=== PATIENT | male | born 1975 | race Caucasian/White ===

== ENCOUNTER 2019-06-12 17:19 | Emergency (ER) | payer OTHER ==
[~2019-06-12 17:19] MED LIST: LORazepam 2 MG/ML VIAL ONE; WATER FOR INJ,STERILE 10 ML ONE; ZIPRASIDONE MESYLA 20 MG/VIAL IM ONE
[2019-06-12 17:44] LABS: Absolute Lymphocytes (CBC) 2.9 K/uL (0.7-4.9); Basophils % 0.5 % (0-1.3); Hematocrit 39.3 % (39.6-49.0); Lymphocytes % 46.7 % (15.3-44.8); MPV 7.7 fL (7.6-11.3); RBC Red Blood Cell Count 4.77 M/uL (4.33-5.43)
[2019-06-12 17:52] LABS: Protime INR 0.97
[2019-06-12 18:07] LABS: ALT/SGPT 41 U/L (12-78); AST/SGOT 32 U/L (15-37); Albumin 4.3 g/dL (3.4-5.0); Alkaline Phosphatase 88 U/L (45-117); BUN Blood Urea Nitrogen 11 mg/dL (7-18); Bicarbonate 17 mmol/L (21-32); Bilirubin Direct < 0.1 mg/dL (0-0.2); Bilirubin Total 0.3 mg/dL (0.2-1.0); Glucose Level 95 mg/dL (74-106); Potassium 3.1 mmol/L (3.5-5.1); Protein, Total 8.6 g/dL (6.4-8.2); Sodium Level 139 mmol/L (136-145)
[2019-06-12] MEDS ORDERED: NA CHLORIDE 0.9% 1,000 ML ONE ×2 (18:27→20:03)
[2019-06-12] MEDS ORDERED: KCL 20 MEQ/100 mL IVPB 20 MEQ/100 ML BAG IV ONE (18:46)
[2019-06-12 18:50] LABS: Barbiturates NEGATIVE (NEGATIVE); Benzodiazepines POSITIVE (NEGATIVE); Cocaine NEGATIVE (NEGATIVE); METHAMPHETAM NEGATIVE (NEGATIVE); Methadone NEGATIVE (NEGATIVE); Opiates NEGATIVE (NEGATIVE); Phencyclidine NEGATIVE (NEGATIVE); THC Cannibis NEGATIVE (NEGATIVE)
[2019-06-12] MEDS ORDERED: FOLIC ACID 1 MG, MULTIVITAMINS INJ 10 ML, THIAMINE HCL 100 MG in NA CHLORIDE 0.9% 1,000 ML IV ONE (19:00)
[2019-06-12 20:48] LABS: Urine Blood NEGATIVE (NEG); Urine Glucose NEGATIVE (NEG); Urine Protein NEGATIVE (NEG); Urine pH 5.5 (5.0-7.0)
--- NOTE | 2019-06-12 21:47 | EDPHYS ---
Physician Documentation [facility] Name: Bharathi Naik Age: 44 yrs Sex: Male : 1975 Arrival Date: 06/12/2019 Time: 17:21 Bed 2 Private MD: Daniel Douglas HPI: 06/11 17:41 This 44 yrs old Male presents to ER via EMS with complaints of Seizure. case 17:41 The patient presents after having a single isolated seizure, that lasted 2 minute(s). case Character of seizure(s): Loss of consciousness: the patient experienced loss of consciousness, Motor activity: generalized, Incontinence: none, Apnea: the patient did not experience apnea, Circulation: the patient did not experience evidence of pulse disturbance. Seizure onset: just prior to arrival. Context: the seizure(s) was witnessed, neighbor. Seizure Hx: it is unknown whether or not the patient has a previous seizure history, seizures due to Xanax withdrawal , heavy etoh today. Associated injury: The patient did not suffer any apparent associated injury. EMS care: none, IV fluids. The patient has experienced similar episodes in the past, a few times. Historical: - Allergies: 17:43 No Known Allergies; hb - Home Meds: 17:43 Neurontin Oral [Active]; Xanax Oral [Active]; Zoloft Oral [Active]; hb - PMHx: 17:43 Seizures; hb - Immunization history:: Adult Immunizations up to date. - Social history:: Smoking status: unknown. - Family history:: not pertinent. ROS: 17:41 Eyes: Negative for injury, pain, redness, and discharge, ENT: Negative for injury, case pain, and discharge, Neck: Negative for injury, pain, and swelling, Respiratory: Negative for shortness of breath, cough, wheezing, and pleuritic chest pain, Abdomen/GI: Negative for abdominal pain, nausea, vomiting, diarrhea, and constipation, Back: Negative for injury and pain, : Negative for injury, bleeding, discharge, and swelling, MS/Extremity: Negative for injury and deformity, Skin: Negative for injury, rash, and discoloration, Psych: Negative for depression, anxiety, suicide ideation, homicidal ideation, and hallucinations, Allergy/Immunology: Negative for hives, rash, and allergies, Endocrine: Negative for neck swelling, polydipsia, polyuria, polyphagia, and marked weight changes. 17:41 Constitutional: Negative for 17:41 Cardiovascular: Positive for palpitations. 17:41 Neuro: Positive for altered mental status. 17:41 Psych: Positive for drug dependence. Exam: 17:41 Constitutional: This is a well developed, well nourished patient who is awake, alert, case and in no acute distress. Head/Face: Normocephalic, atraumatic. Eyes: Pupils equal round and reactive to light, extra-ocular motions intact. Lids and lashes normal. Conjunctiva and sclera are non-icteric and not injected. Cornea within normal limits. Periorbital areas with no swelling, redness, or edema. ENT: Nares patent. No nasal discharge, no septal abnormalities noted. Tympanic membranes are normal and external auditory canals are clear. Oropharynx with no redness, swelling, or masses, exudates, or evidence of obstruction, uvula midline. Mucous membranes moist. Neck: Trachea midline, no thyromegaly or masses palpated, and no cervical lymphadenopathy. Supple, full range of motion without nuchal rigidity, or vertebral point tenderness. No Meningismus. Chest/axilla: Normal chest wall appearance and motion. Nontender with no deformity. No lesions are appreciated. Respiratory: Lungs have equal breath sounds bilaterally, clear to auscultation and percussion. No rales, rhonchi or wheezes noted. No increased work of breathing, no retractions or nasal flaring. Abdomen/GI: Soft, non-tender, with normal bowel sounds. No distension or tympany. No guarding or rebound. No evidence of tenderness throughout. Male : Normal genitalia with no discharge or lesions. Skin: Warm, dry with normal turgor. Normal color with no rashes, no lesions, and no evidence of cellulitis. MS/ Extremity: Pulses equal, no cyanosis. Neurovascular intact. Full, normal range of motion. 17:41 Cardiovascular: Rate: tachycardic, Rhythm: regular, Pulses: Pulses are 4+ in bilateral radial, brachial, femoral, popliteal, posterior tibial and and dorsalis pedis arteries.. Heart sounds: normal, Edema: is not appreciated, JVD: is not appreciated. 17:41 Neuro: Orientation: to person, place, Not oriented to time, situation, Mentation: able to follow commands, slow to respond, Memory: unable to test, Cranial nerves: is grossly normal based on the patient's age, no acute changes, Cerebellar function: unable to test, Motor: moves all fours, strength is normal, strength is 5/5 in all extremities, Sensation: no obvious gross deficits, appropriate Gait: not tested. Deep tendon reflexes are 2+ (normal) in the bilateral brachioradialis, bicep, tricep and patellar and Achilles tendons, Babinski testing is normal, seizure activity, is not displayed by the patient. 18:49 ECG was reviewed by the Attending Physician. [facility] 18:50 Neck: ROM/movement: is normal, no acute changes, Meningeal signs: are not present, case Kernig's sign is negative, Brudzinski's sign is negative. Vital Signs: 17:22 BP 125 / 87; Pulse 119; Resp 20; Temp 97.8; Pulse Ox 100% on R/A; Weight 120 kg; Height hb 6 ft. (182.88 cm); 18:15 BP 131 / 76; Pulse 124; Resp 15; Pulse Ox 97% on 100% Non-rebreather mask; hb 18:30 Pulse 122; Resp 14; Pulse Ox 97% on 100% Non-rebreather mask; hb 18:45 BP 121 / 62; Pulse 120; Resp 14; Pulse Ox 97% on 100% Non-rebreather mask; hb 19:00 BP 115 / 62; Pulse 118; Resp 17; Temp 97.3; Pulse Ox 100% on 15% Non-rebreather mask; rr5 20:00 BP 114 / 71; Pulse 110; Resp 15; Pulse Ox 99% on 15% Non-rebreather mask; rr5 21:00 BP 122 / 105; Pulse 88; Resp 16; Pulse Ox 100% on 10% Non-rebreather mask; rr5 22:00 BP 136 / 95; Pulse 108; Resp 19; Pulse Ox 98% ; rr5 23:00 BP 125 / 70; Pulse 99; Resp 18; Temp 97.8; Pulse Ox 100% on 10% Non-rebreather mask; rr5 0415 01:00 BP 98 / 63; Pulse 79; Resp 16; Pulse Ox 100% on 10% Non-rebreather mask; rr5 02:12 BP 101 / 67; Pulse 83; Resp 18; Pulse Ox 100% on R/A; ea 03:30 BP 98 / 79; Pulse 90; Resp 18; Pulse Ox 99% ; ea 05:20 BP 108 / 85; Pulse 87; Resp 16; Pulse Ox 100% ; rr5 06:05 BP 110 / 80; Pulse 89; Resp 17; Temp 98.6; Pulse Ox 98% on R/A; rr5 14 17:22 Body Mass Index 35.88 (120.00 kg, 182.88 cm) hb Brad Coma Score: 06/11 21:30 Eye Response: spontaneous(4). Verbal Response: oriented(5). Motor Response: obeys rr5 commands(6). Total: 15. MDM: 17:30 Patient medically screened. snw 17:48 Data reviewed: vital signs, nurses notes, lab test result(s), EKG, radiologic studies, case plain films. 17:49 ED course: pt arrived by [facility], combative, post ictal, xanax hx and heavy etoh case all day per ems. 06/11 17:27 Order name: Acetaminophen; Complete Time: 18:33 hb 06/11 17:27 Order name: Basic Metabolic Panel; Complete Time: 18:33 hb 06/11 17:27 Order name: CBC with Diff; Complete Time: 17:49 hb 06/11 17:27 Order name: ETOH Level; Complete Time: 18:33 hb 06/11 17:27 Order name: Hepatic Function; Complete Time: 18:33 hb 06/11 17:27 Order name: PT-INR; Complete Time: 18:33 hb 06/11 17:27 Order name: Ptt, Activated; Complete Time: 18:33 hb 06/11 17:27 Order name: Salicylate; Complete Time: 18:33 hb 06/11 17:27 Order name: Urine Drug Screen; Complete Time: 19:12 hb 06/11 18:13 Order name: Urine Dipstick--Ancillary (enter results); Complete Time: 20:53 bd 06/11 17:27 Order name: EKG; Complete Time: 17:28 hb 06/11 17:27 Order name: EKG - Nurse/Tech; Complete Time: 18:39 hb 06/11 17:27 Order name: IV Saline Lock; Complete Time: 17:47 hb 06/11 17:27 Order name: Labs collected and sent; Complete Time: 17:47 hb 06/11 17:27 Order name: Urine Dipstick-Ancillary (obtain specimen); Complete Time: 18:21 hb 06/11 17:48 Order name: Restraint:Violent/Self Destructive (Adult:18yo or >); Complete Time: 18:10 case 06/11 18:35 Order name: PO challenge: juice x 2 when awake; Complete Time: 18:38 case EC:49 Rate is 122 beats/min. Rhythm is regular. QRS [place] is Normal. TN interval is normal. case QRS interval is normal. QT interval is normal. No Q waves. T waves are Inverted. No ST changes noted. Clinical impression: Sinus tachycardia and No evidence of ischemia. Administered Medications: 17:15 Drug: Ativan 2 mg Route: IM; Site: left vastus lateralis; hb 18:00 Follow up: Response: No adverse reaction hb 17:21 Drug: Geodon 20 mg Route: IM; Site: right vastus lateralis; hb 17:45 Follow up: Response: No adverse reaction [facility] 18:18 Drug: Banana Bag - (NS 0.9% 1000 ml, foLIC Acid 1 mg, Thiamine 100 mg, Multivitamin 1 hb amp) Route: IV; Rate: 125 ml/hr; Site: left antecubital; 06/12 02:00 Follow up: Response: No adverse reaction; IV Status: Completed infusion; IV Intake: rr5 1000ml 06/11 18:29 Drug: NS 0.9% 1000 ml Route: IV; Rate: 1 bolus; Site: left antecubital; hb 20:00 Follow up: Response: No adverse reaction; IV Status: Completed infusion; IV Intake: rr5 1000ml 18:30 Drug: Thiamine 100 mg Route: IV; Rate: bolus; Site: left antecubital; hb 19:00 Follow up: IV Status: Completed infusion ea 18:48 Drug: Potassium Chloride 20 mEq Route: IV; Rate: per protocol; Site: left antecubital; hb 20:30 Follow up: Response: No adverse reaction; IV Status: Completed infusion; IV Intake: rr5 100ml 20:03 Drug: NS 0.9% 1000 ml Route: IV; Rate: 1 bolus; Site: left antecubital; rr5 06/12 07:10 Follow up: Response: No adverse reaction; IV Status: Completed infusion; IV Intake: ea 1000ml 06:37 Not Given (Other Intervention Used): Ativan 2 mg IVP once; if needed rr5 Disposition: 06/12/19 21:46 Discharged to Home. Impression: Underdosing of benzodiazepines - withdrawal, seizure, Hypokalemia, Epileptic seizures related to external causes - xanax withdrawal, Alcohol abuse with intoxication. - Condition is Fair. - Discharge Instructions: Alcohol Intoxication, Potassium Content of Foods, Nonepileptic Seizures, Alcohol Intoxication, [id number], Alcohol Abuse and Nutrition, Hypokalemia, Benzodiazepine Withdrawal. - Prescriptions for Klonopin 1 mg Oral tablet - take 1 tablet by ORAL route 2 times per day; 20 tablet. Potassium Chloride 20 meq Oral Packet - take 1 packet by ORAL route once daily 1 packet in 6 (six) ounces of water or juice; Take after meal; 14 packet. - Medication Reconciliation Form, Thank You Letter, Antibiotic Education, Prescription Opioid Use form. - Follow up: Private Physician; When: 2 - 3 days; Reason: Recheck today's complaints, Continuance of care, Re-evaluation by your physician. Follow up: Yon Keith; When: 2 - 3 days; Reason: Recheck today's complaints, Re-evaluation by your physician. - Problem is new. - Symptoms have improved. Signatures: Dispatcher [employer] Kadi Nicholson RN Daniel Espinoza MD MD cha Therrien, Shelly, WRESTLING COACH-C WRESTLING COACH-Csnw Leana Gao RN RN hb Roque, Raymond, RN RN rr5 Cameron Vaughan RN [id number] Marcella Heard RN, ea Corrections: (The following items were deleted from the chart) 07:33 06/11 21:46 06/12/2019 21:46 Discharged to Home. Impression: Underdosing of sv benzodiazepines - withdrawal, seizure; Hypokalemia; Epileptic seizures related to external causes - xanax withdrawal; Alcohol abuse with intoxication. Condition is Fair. Discharge Instructions: Alcohol Intoxication, Potassium Content of Foods, Nonepileptic Seizures, Alcohol Intoxication, [id number], Alcohol Abuse and Nutrition, Hypokalemia, Benzodiazepine Withdrawal. Prescriptions for Klonopin 1 mg Oral tablet - take 1 tablet by ORAL route 2 times per day; 20 tablet, Potassium Chloride 20 meq Oral Packet - take 1 packet by ORAL route once daily 1 packet in 6 (six) ounces of water or juice; Take after meal; 14 packet. and Forms are Medication Reconciliation Form, Thank You Letter, Antibiotic Education, Prescription Opioid Use. Follow up: Private Physician; When: 2 - 3 days; Reason: Recheck today's complaints, Continuance of care, Re-evaluation by your physician. Follow up: Yon Keith; When: 2 - 3 days; Reason: Recheck today's complaints, Re-evaluation by your physician. Problem is new. Symptoms have improved. snw
--- NOTE | 2019-06-12 21:47 | ER ---
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 On scene pt was on hb ground, had another seizure for 30-60 seconds, was post ictal and became violent during transfer to [facility]. EMS reports 6 seizures during transport to ED. Upon arrival pt severely agitated and violent, requiring restraint by multiple police officers. 18g LAC. Coronavirus screen: unable to complete. Ebola Screen: Unable to complete the Ebola screening because:. Initial Sepsis Screen: Does the patient meet any 2 criteria? No. Patient's initial sepsis screen is negative. Does the patient have a suspected source of infection? No. Patient's initial sepsis screen is negative. Risk Assessment: Do you want to hurt yourself or someone else? Other: aggressive, restrained by police officers. Onset of symptoms was June 12, 2019. 17:22 Method Of Arrival: EMS: [facility] Historical: - Allergies: 17:43 No Known Allergies; hb - Home Meds: 17:43 Neurontin Oral [Active]; Xanax Oral [Active]; Zoloft Oral [Active]; hb - PMHx: 17:43 Seizures; hb - Immunization history:: Adult Immunizations up to date. - Social history:: Smoking status: unknown. - Family history:: not pertinent. Screenin:44 Abuse screen: Denies threats or abuse. Denies injuries from another. Nutritional hb screening: No deficits noted. Tuberculosis screening: No symptoms or risk factors identified. Fall Risk Total Aleman Fall Scale indicates Low Risk Score (25-44 pts). Fall prevention measures have been instituted. Side Rails Up X 2 Frequent Obs/Assesments occuring As available Patient and Family Educated on Fall Prevention Program and strategies. Assessment: 17:12 Reassessment: Brian Edge called, multiple [place] police officers present, pt severely hb agitated and aggressive, attempting to punch and kick officers and staff. 17:23 Reassessment: Four PD officers at bedside to assist [place] [employer], pt attempting to hb spit, bite, punch, and kick staff and PD. 17:24 Reassessment: Surgical mask placed on pt. hb 17:28 General: Appears distressed, Behavior is agitated, anxious, combative. Pain: Denies hb pain. Neuro: Level of Consciousness is awake, alert, Oriented to person. Cardiovascular: Capillary refill < 3 seconds. Respiratory: Airway is patent Respiratory effort is even, unlabored. GI: No signs and/or symptoms were reported involving the gastrointestinal system. : No signs and/or symptoms were reported regarding the genitourinary system. EENT: No signs and/or symptoms were reported regarding the EENT system. Derm: Skin is intact, Skin is diaphoretic, Skin is pink, Skin temperature is warm. Musculoskeletal: No signs and/or symptoms reported regarding the musculoskeletal system. 18:18 Reassessment: Pt appears calm, lying in bed with eyes closed, respirations even and hb unlabored, VSS, NAD. 19:00 General: Appears in no apparent distress. Behavior is drowsy, quiet. Pain: Unable to rr5 use pain scale. Patient appears quiet, drowsy. Neuro: Level of Consciousness is drowsy. Oriented to none. Cardiovascular: Capillary refill < 3 seconds Patient's skin is warm and dry. Respiratory: Airway is patent Respiratory effort is even, unlabored, Respiratory pattern is regular, symmetrical. GI: unable to assess. Derm: Skin is intact, is healthy with good turgor, Skin temperature is warm. Musculoskeletal: Capillary refill < 3 seconds. 20:00 Reassessment: Patient appears in no apparent distress at this time. vitally stable, rr5 patient lying on bed eyes closed breathing spontaneously with oxygen support on non re breather mask. 20:07 Reassessment: niyah cordoba ([employer] [facility]) number [phone], she said to call her if patient is rr5 for discharge to arrange transport. 21:30 Reassessment: Patient appears in no apparent distress at this time. Patient is alert, rr5 oriented x 3, equal unlabored respirations, skin warm/dry/pink. patient woke up get out on bed, unsteady gait noted, alert oriented, calm, not aggressive obeys command. voided on the urinal freely 1500 clear yellow urine noted. 22:00 Reassessment: Patient appears in no apparent distress at this time. Patient is alert, rr5 oriented x 3, equal unlabored respirations, skin warm/dry/pink. snacks and juice given with good appetite. 22:13 Reassessment: Niyah Cordoba called to check in on fiance, reports she is unable to find a ea ride. 22:54 Reassessment: Patient and/or family updated on plan of care and expected duration. Pain ea level reassessed. Pt resting with eyes closed, respirations even and unlabored. Chest expansions even and symmetrical. 23:50 Reassessment: Patient appears in no apparent distress at this time. eyes closed rr5 breathing spontaneously with oxygen at 10 liter via NRM. 06/12 01:10 Reassessment: Patient appears in no apparent distress at this time. No changes from rr5 previously documented assessment. 02:58 Reassessment: Patient and/or family updated on plan of care and expected duration. Pain ea level reassessed. Pt resting with eyes closed, respirations even and unlabored. Chest expansions even and unlabored. 03:59 Reassessment: Patient and/or family updated on plan of care and expected duration. Pain ea level reassessed. Patient is alert, oriented x 3, equal unlabored respirations, skin warm/dry/pink. Pt resting with eyes closed, respirations even and unlabored. Pt awaiting on ride. Nicole reports she is unable to find a ride until in the AM. 05:54 Reassessment: Patient appears in no apparent distress at this time. No changes from rr5 previously documented assessment. resting on side lying position, no complaints made. 06:11 Reassessment: Patient and/or family updated on plan of care and expected duration. Pain ea level reassessed. Pt resting with eyes closed, respirations even and unlabored, chest expansions even and symmetrical. No s/s of pain or discomfort noted at this time. 06:35 Reassessment: Patient appears in no apparent distress at this time. patient fully rr5 awake, conscious and coherent, snacks and coffee given with good appetite. he is trying to arrange transport. 07:33 Reassessment: Taxi here to take pt home. sv Vital Signs: 06/11 17:22 BP 125 / 87; Pulse 119; Resp 20; Temp 97.8; Pulse Ox 100% on R/A; Weight 120 kg; Height hb 6 ft. (182.88 cm); 18:15 BP 131 / 76; Pulse 124; Resp 15; Pulse Ox 97% on 100% Non-rebreather mask; hb 18:30 Pulse 122; Resp 14; Pulse Ox 97% on 100% Non-rebreather mask; hb 18:45 BP 121 / 62; Pulse 120; Resp 14; Pulse Ox 97% on 100% Non-rebreather mask; hb 19:00 BP 115 / 62; Pulse 118; Resp 17; Temp 97.3; Pulse Ox 100% on 15% Non-rebreather mask; rr5 20:00 BP 114 / 71; Pulse 110; Resp 15; Pulse Ox 99% on 15% Non-rebreather mask; rr5 21:00 BP 122 / 105; Pulse 88; Resp 16; Pulse Ox 100% on 10% Non-rebreather mask; rr5 22:00 BP 136 / 95; Pulse 108; Resp 19; Pulse Ox 98% ; rr5 23:00 BP 125 / 70; Pulse 99; Resp 18; Temp 97.8; Pulse Ox 100% on 10% Non-rebreather mask; rr5 06/12 01:00 BP 98 / 63; Pulse 79; Resp 16; Pulse Ox 100% on 10% Non-rebreather mask; rr5 02:12 BP 101 / 67; Pulse 83; Resp 18; Pulse Ox 100% on R/A; ea 03:30 BP 98 / 79; Pulse 90; Resp 18; Pulse Ox 99% ; ea 05:20 BP 108 / 85; Pulse 87; Resp 16; Pulse Ox 100% ; rr5 06:05 BP 110 / 80; Pulse 89; Resp 17; Temp 98.6; Pulse Ox 98% on R/A; rr5 06/11 17:22 Body Mass Index 35.88 (120.00 kg, 182.88 cm) hb Brad Coma Score: 06/11 21:30 Eye Response: spontaneous(4). Verbal Response: oriented(5). Motor Response: obeys rr5 commands(6). Total: 15. ED Course: 17:21 Patient arrived in ED. mr 17:30 Daniel More MD is Attending Physician. snw 17:41 Triage completed. hb 17:43 Arm band placed on. hb 17:44 Patient has correct armband on for positive identification. Bed in low position. Call hb light in reach. Side rails up X2. Seizure precautions initiated. 17:44 Maintain EMS IV. Dressing intact. Good blood return noted. Site clean \T\ dry. Gauge \T\ hb site: 18g LAC. 18:15 Police notified at 17:25. bd 18:21 Cameron Vaughan RN is Primary Nurse. jl7 19:57 Ebony Naidu FNP-C is PHCP. snw 20:11 No provider procedures requiring assistance completed. rr5 21:46 Yon Keith MD is Referral Physician. snw 06/12 07:10 IV discontinued, intact, bleeding controlled, No redness/swelling at site. Pressure ea dressing applied. Restraints: 06/11 17:45 Violent/Self Destructive Restraint: Order: obtained. Initiated June 12, 2019 at 17:30 hb Staff present during the Initiation of Restraint: Dr. More, Charge Nurse Leida PEREZ, [place] PD, [place] [employer], [employer] grain picker. Observed actions/behavior: violent, severely aggressive, confusion/disorientation, difficulty remembering or follow instructions, impaired decision making, repeated attempts to get up from bed/chair without assistance. unable to follow instructions, verbally abusive, Less restrictive alternatives attempted: decreased environmental stimuli, placed near Nurse station, reoriented to location, verbal de-escalation performed, Alternative interventions: Ineffective. Clinical justification for use: Violent/self destructing behavior impacts therapeutic environment. Poses a serious danger to physical safety of self \T\ others. Monitoring: Mental status: agitated/restless, confused. verbally abusive, Cognition: poor judgement, poor safety awareness, Impulsive, poor attention/concentration, unable to follow commands, Circulation: Within defined parameters (based on Cardiovascular assessment). Skin integrity: Within defined parameters (based on Integumentary assessment) No injuries due to Restraints noted. 17:45 Violent/Self Destructive Restraint: Restraint status: Side rails up x 4 Started. Soft hb wrist restraint (Right) Started. Soft wrist restraint (Left) Started. Soft ankle restraint (Right) Started. Soft ankle restraint (Left) Started. 18:00 Violent/Self Destructive Restraint: Restraint status: Side rails up x 4 Continued. Soft hb wrist restraint (Right) Continued. Soft wrist restraint (Left) Continued. Soft ankle restraint (Right) Continued. Soft ankle restraint (Left) Continued. 18:15 Violent/Self Destructive Restraint: Restraint status: Side rails up x 4 Continued. Soft hb wrist restraint (Right) Continued. Soft wrist restraint (Left) Continued. Soft ankle restraint (Right) Continued. Soft ankle restraint (Left) Continued. 18:30 Violent/Self Destructive Restraint: Monitoring: Mental status: patient asleep, hb Circulation: Within defined parameters (based on Cardiovascular assessment). Skin integrity: Within defined parameters (based on Integumentary assessment) No injuries due to Restraints noted. 18:45 Violent/Self Destructive Restraint: Monitoring: Mental status: patient asleep, hb Circulation: Within defined parameters (based on Cardiovascular assessment). Skin integrity: Within defined parameters (based on Integumentary assessment) No injuries due to Restraints noted. 19:00 Violent/Self Destructive Restraint: Face to Face Evaluatn: Response of Patient to rr5 Restraint: received resting eyes closed, breathing spontaneously,not in distress, not aggressive Terminate restraint. Restraint discontinuation: Discontinued at June 12, 2019 at 19:00 Effective alternative interventions: decrease environmental stimuli, medications evaluated, repositioned, covered lines/tubes. Administered Medications: 17:15 Drug: Ativan 2 mg Route: IM; Site: left vastus lateralis; hb 18:00 Follow up: Response: No adverse reaction hb 17:21 Drug: Geodon 20 mg Route: IM; Site: right vastus lateralis; hb 17:45 Follow up: Response: No adverse reaction [facility] 18:18 Drug: Banana Bag - (NS 0.9% 1000 ml, foLIC Acid 1 mg, Thiamine 100 mg, Multivitamin 1 hb amp) Route: IV; Rate: 125 ml/hr; Site: left antecubital; 06/12 02:00 Follow up: Response: No adverse reaction; IV Status: Completed infusion; IV Intake: rr5 1000ml 06/11 18:29 Drug: NS 0.9% 1000 ml Route: IV; Rate: 1 bolus; Site: left antecubital; hb 20:00 Follow up: Response: No adverse reaction; IV Status: Completed infusion; IV Intake: rr5 1000ml 18:30 Drug: Thiamine 100 mg Route: IV; Rate: bolus; Site: left antecubital; hb 19:00 Follow up: IV Status: Completed infusion ea 18:48 Drug: Potassium Chloride 20 mEq Route: IV; Rate: per protocol; Site: left antecubital; hb 20:30 Follow up: Response: No adverse reaction; IV Status: Completed infusion; IV Intake: rr5 100ml 20:03 Drug: NS 0.9% 1000 ml Route: IV; Rate: 1 bolus; Site: left antecubital; rr5 06/12 07:10 Follow up: Response: No adverse reaction; IV Status: Completed infusion; IV Intake: ea 1000ml 06:37 Not Given (Other Intervention Used): Ativan 2 mg IVP once; if needed rr5 Intake: 06/11 20:00 IV: 1000ml; Total: 1000ml. rr5 20:30 IV: 100ml; Total: 1100ml. rr5 22:00 PO: 550ml (Juice); Total: 1650ml. rr5 06/12 02:00 IV: 1000ml; Total: 2650ml. rr5 06:36 PO: 500ml (Water); Total: 3150ml. rr5 07:10 IV: 1000ml; Total: 4150ml. ea 06:36 and coffee rr5 Output: 06/11 21:30 Urine: 1500ml (Voided); Total: 1500ml. rr5 06/12 06:36 and coffee rr5 Outcome: 06/11 21:46 Discharge ordered by . jeri 06/12 07:09 Condition: stable ea Discharge instructions given to patient, Instructed on discharge instructions, follow up and referral plans. medication usage, Demonstrated understanding of instructions, follow-up care, medications, Prescriptions given X 2. 07:33 Patient left the ED. sv Signatures: Trish Haro Stephanie, RN Daniel Espinoza MD MD cha Therrien, Shelly, FIXED CAPITAL CLERK-C FIXED CAPITAL CLERK-Amy Ochoa Heather, RN RN hb Leal, Jahala, RN RN jl7 Marcella Heard RN RN ea Roque, Raymond RN RN rr5 Corrections: (The following items were deleted from the chart) 06/11 18:16 18:14 Police bd bd 18:18 17:52 Reassessment: Pt appears calm, lying in bed with eyes closed, respirations even hb and unlabored, VSS, NAD. hb 18:55 18:00 Response: No adverse reaction hb jl7
[2019-06-13 08:00] VITALS: BP 110/80; TEMP 98.6; O2SAT 98
--- NOTE | 2019-06-13 12:51 | EKG ---
Test Date: 2019-06-12 Test Time: 18:42:57 Industrial Conveyor Belt Repairer: FRANCIS MEASUREMENT RESULTS: Intervals: Rate: 122 VA: 148 QRSD: 92 QT: 324 QTc: 461 [place]: P: 71 VA: 148 QRS: 77 T: 10 INTERPRETIVE STATEMENTS: Sinus tachycardia T wave abnormality, consider inferior ischemia Abnormal ECG No previous ECG available for comparison Electronically Signed On 06-13-19 12:49:49 CDT by Jose Peter
== END 2019-06-13 07:33 | disposition home or self-care (01) ==
LOC: ER 17:19
DX: F19.939 Other psychoactive substance use, unspecified with withdrawal, unspecified (principal); T42.4X6A Underdosing of benzodiazepines, initial encounter; F10.129 Alcohol abuse with intoxication, unspecified
CPT/HCPCS: 85025; 80048; 36415; 80320; 80329 ×2; 85610; 80076; 80307 ×8; 85730; 81003; J3411; J7030 ×3; 93005; J3486

== ENCOUNTER 2019-09-17 04:29 | Emergency (ER) | payer OTHER ==
--- NOTE | 2019-09-17 05:54 | ER ---
Nurse's Notes [facility] Name: Bharathi Naik Age: 44 yrs Sex: Male : 1975 Arrival Date: 09/17/2019 Time: 04:34 Bed 2 Private MD: Diagnosis: Presentation: 09/16 04:34 Chief complaint: Patient states: DENIES HURTING HIMSELF OR THE OTHERS. EMS states: WAS rv IN A HOUSE CONSTITUTION PARTY, DRINKING ALL DAY. PASSED OUT IN THE PORCH AND DID NOT WANT TO LEAVE THE HOUSE. TOUR PRODUCTION SUPERVISOR CAME IN AND STARTED TO HAVE POSSIBLE SEIZURE. THEN TRIED TO JUMP OFF THE PORCH. HURT HIS LEFT FOOT AND KNEE, AND RIGHT THIGH ON THE PROCESS. ALERT AND ORIENTED UPON ARRIVAL. DENIES ANY CHEST PAIN, HEADACHE OR DIZZINESS. Coronavirus screen: Proceed with normal triage. Ebola Screen: No symptoms or risks identified at this time. Initial Sepsis Screen: Does the patient meet any 2 criteria? No. Patient's initial sepsis screen is negative. Does the patient have a suspected source of infection? No. Patient's initial sepsis screen is negative. Risk Assessment: Do you want to hurt yourself or someone else? Patient reports no desire to harm self or others. Onset of symptoms was September 17, 2019 at 04:00. 04:34 Method Of Arrival: EMS: [facility] rv 04:34 Acuity: GIRISH 3 rv 04:39 Chief complaint: VERBALIZED HURTING HIMSELF, BEING SUICIDAL, BECAUSE OF RECENT PASSING rv OF MULTIPLE FAMILY MEMBERS. 04:46 Chief complaint:. rv Triage Assessment: 04:40 General: Appears comfortable, Behavior is calm, cooperative. Pain: Complains of pain in rv right wrist, lateral aspect of right thigh, left knee and dorsum of left foot. EENT: No signs and/or symptoms were reported regarding the EENT system. Neuro: Level of Consciousness is awake, alert, obeys commands, Oriented to person, place, time, situation. Cardiovascular: Patient's skin is warm and dry. Rhythm is sinus tachycardia. Respiratory: Airway is patent Respiratory effort is even, unlabored. Derm: Skin is intact. Historical: - Allergies: 04:39 No Known Allergies; rv - PMHx: 04:39 Seizures; TRAUMATIC BRAIN INJURY; rv - PSHx: 04:39 BRAIN SHUNT; rv - Immunization history:: Adult Immunizations unknown. - Social history:: Smoking status: Patient reports the use of cigarette tobacco products, denies chronic smoking, but will smoke occasionally, Patient uses alcohol. Screenin:47 Abuse screen: Denies threats or abuse. Denies injuries from another. Nutritional rv screening: No deficits noted. Tuberculosis screening: No symptoms or risk factors identified. Fall Risk None identified. Assessment: 05:08 Reassessment: PATIENT REFUSED TO BE TREATED. WALKED OUT THE EXAMINATION ROOM BEFORE rv BEING SEEN BY A PROVIDER. 05:30 Reassessment: pt is alert and oriented x4 at this time, reports that he is upset that sg the police were not trained to handle seizure patients appropriately and that is the reason he became aggressive with the police. pt reports he would like to go to back to his home at this time. pt has refuse treatment at this time. 05:38 Reassessment: pt ambulatory to taxi with steady gait, pt denies any complaints, denies sg suicidal ideation, denies homicidal ideation at this time. pt left the ED to go home. Vital Signs: 04:34 BP 108 / 86; Pulse 116; Resp 14; Temp 98.6; Pulse Ox 97% on R/A; Weight 108.86 kg; rv Height 5 ft. 11 in. (180.34 cm); Pain 0/10; 04:34 Body Mass Index 33.47 (108.86 kg, 180.34 cm) rv ED Course: 04:34 Patient arrived in ED. rv 04:35 Brett Oliver MD is Attending Physician. [facility] 04:38 Triage completed. rv 04:46 Arm band placed on Patient placed in the treatment room, on a stretcher, Patient rv notified of wait time. 04:47 Patient has correct armband on for positive identification. Placed in gown. Bed in low rv position. Call light in reach. Side rails up X2. Seizure precautions initiated. barrel bridge assembler on. Pulse ox on. NIBP on. 05:08 Declan Taylor RN is Primary Nurse. rv 05:09 No provider procedures requiring assistance completed. Patient did not have IV access rv during this emergency room visit. Administered Medications: No medications were administered Outcome: 05:09 Eloped from patient exam room, before seeing physician Time discovered patient gone: rv September 17, 2019 at 04:50 05:09 Condition: unchanged 05:53 Patient left the ED. rv Signatures: Rich Hollins RN RN sg Declan Taylor RN RN rv Brett Oliver MD MD [id number] Corrections: (The following items were deleted from the chart) 04:47 04:34 Chief complaint: Patient states: WAS IN A HOUSE CONSTITUTION PARTY, DRINKING ALL DAY. PASSED rv OUT IN THE PORCH AND DID NOT WANT TO LEAVE THE HOUSE. TOUR PRODUCTION SUPERVISOR CAME IN AND STARTED TO HAVE POSSIBLE SEIZURE. THEN TRIED TO JUMP OFF THE PORCH. HURT HIS LEFT FOOT AND KNEE, AND RIGHT THIGH ON THE PROCESS. ALERT AND ORIENTED UPON ARRIVAL. DENIES ANY CHEST PAIN, HEADACHE OR DIZZINESS. rv
[2019-09-17 06:03] VITALS: BP 108/86; TEMP 98.6; O2SAT 97
== END 2019-09-17 05:53 | disposition left against medical advice (07) ==
LOC: ER 04:29
DX: R45.851 Suicidal ideations (principal); Z53.21 Procedure and treatment not carried out due to patient leaving prior to being seen by health care provider
CPT/HCPCS: 99284

== ENCOUNTER 2021-10-02 17:35 | Emergency (ER) | payer MEDICARE ==
--- OUTSIDE RECORDS SUMMARY | 2021-10-02 17:39 | XMS REPORT | Continuity of Care Document ---
:1975 Author Organization [facility] t Address [address] [place] [address] [address]. [address] [place] [address] Care Team Providers Name Role Phone RICHIE GHOTRA Primary Care Physician Unavailable GAY_S Attending Clinician Unavailable Celso Reyna Attending Clinician CELSO HESS Attending Clinician Unavailable Doctor Unassigned, [place] Attending Clinician Unavailable ALICE DAY Attending Clinician Unavailable AZAEL GALEANO Attending Clinician Unavailable RU BELLO Attending Clinician Unavailable LUIS ALBERTO DARNELL Attending Clinician Unavailable UNKNOWN, ATTENDING Attending Clinician Unavailable AGUSTIN NELSON Attending Clinician Unavailable KESHA SMITH Attending Clinician Unavailable MELISSA Admitting Clinician Unavailable ALICE DAY Admitting Clinician Unavailable ALISHA WILLETT Admitting Clinician Unavailable KESHA SMITH Admitting Clinician Unavailable Payers Payer Name Policy Type Policy Number Effective Date Expiration Date S jose MEDICARE PART A \T\ [id number] 1998 B 00:00:00 [facility] [id number] 2021 (MEDICARE 00:00:00 REPLACEMENT HMO) Problems Condition Condition Condition Status Onset Resolution Last Treating Co mments Source Name Details Category Date Date Treatment Clinician Date Seizure Seizure Disease Active Univers 6- ity of 00:00: [address] Branch 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 2-25 ity of 00:00: [place] 00 Medical Branch Urinary Urinary Disease Active Univers incontinen incontinen 2-25 it y of ce ce 00:00: [place] 00 Medical Branch Allergies, Adverse Reactions, Alerts Allergy Allergy Status Severity Reaction(s) Onset Inactive Treating Comm ents Source Name Type Date Date Clinician Nsaids Propensi Active Other - See 2013-02 stomach [place] (Non-Live ty to comments 2-17 bleeding ity of roidal adverse 00:00: [place] Anti-Inf reaction 00 Medica l lammator s Branch y Drug) NSAIDS Drug Active Other-Cmnt 2013-02 Univer s (NON-LIVE Class 2-17 ity of ROIDAL 00:00: [place] 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 DRUG) Social History Social Habit Start Date Stop Date Quantity Comments Source History SDOH University o f Alcohol Frequency [place] M edical Branch History SDOH University o f Alcohol Std [place] Medical Drinks Branch History SDKS University o f Alcohol Binge [place] Medic al Branch Exposure to Yes University of SARS-CoV-2 [place] Medical (event) Branch Alcohol intake 2020-11-23 2020-11-23 Current drinker Unive rsity of 00:00:00 00:00:00 of alcohol [place] Medical (finding) Branch Alcohol Comment 2014-03-07 2014-03-07 occasional Universit y of 00:00:00 00:00:00 [facility] Tobacco use and 2014-02-13 2014-02-13 Never used Universit y of exposure 00:00:00 00:00:00 [facility] Sex Ass[birth year] At [birth year] Universit y of 00:00:00 00:00:00 [facility] Smoking Status Start Date Stop Date Source Former smoker 2014-02-13 00:00:00 2014-02-13 00:00:00 [facility] Medications Ordered Filled Start Stop Current Ordering Indication Dosage Frequency Signature Comments Components Source Medication Medication Date Date Medication? Clinician (SIG) Name Name yecenia Yes [id number] Apply to [facility] ne 9-26 area(s) 2 ity of acetonide 00:00: (two) [place] 0.1 % 00 times Medical ointment daily. Branch hydrOXYzine Yes [id number] 25mg Take 1 Univers 25 mg 9-26 tablet by ity of tablet 00:00: mouth [place] 00 every 8 Medical (eight) Branch hours as needed for Itching. doxycycline 0 202- No [id number] 100mg Take 1 Univers hyclate 100 9-26 10-07 tablet by it y of mg tablet 00:00: 04:59 mouth 2 [place] 00 :[place] (two) Medical times [place] daily for 10 days. dextroamphe Yes 20mg Take 20 mg Univers tamine-amph 6-15 by mouth 2 it y of etamine 23:25: (two) [place] (ADDERALL) 58 times Medical 20 mg daily. Branch tablet Butalbital- Yes 1{capsu Take 1 U nivers Acetaminoph 6-15 le} capsule by it y of en-Caff 23:25: mouth. [place] (FIORICET) 58 Medical 50-300-40 Branch mg per capsule lisinopriL 0 Yes 10mg Take 10 mg U nivers 10 mg 6-15 by mouth ity of tablet 23:25: daily. [place] [id number] Medical Branch dextroamphe 0 Yes 20mg Take 20 mg Univers tamine-amph 6-15 by mouth 2 it y of etamine 23:25: (two) [place] (ADDERALL) 58 times Medical 20 mg daily. Branch tablet Butalbital- 0 Yes 1{capsu Take 1 U nivers Acetaminoph 6-15 le} capsule by it y of en-Caff 23:25: mouth. [place] (FIORICET) 58 Medical 50-300-40 Branch mg per capsule lisinopriL Yes 10mg Take 10 mg U nivers 10 mg 6-15 by mouth ity of tablet 23:25: daily. [place] 58 Medical Branch acetaminoph 0 Yes [id number] 1{tbl} Take 1 [place] en-codeine 6-15 tablet by ity of 300-30 mg 00:00: mouth [place] tablet 00 every 4 Medical (four) Branch hours as needed for Pain (scale 4-6). Indication s: acute pain neomycin-po Yes [id number] 3[drp] Place 3 Univers lymyxin-hyd 6-15 Drops in ity of rocortisone 00:00: left ear 4 [place] otic 00 (four) Medical solution times Branch daily. acetaminoph Yes [id number] 1{tbl} Take 1 [place] en-codeine 6-15 tablet by ity of 300-30 mg 00:00: mouth [place] tablet 00 every 4 Medical (four) Branch hours as needed for Pain (scale 4-6). Indication s: acute pain neomycin-po Yes [id number] 3[drp] Place 3 Univers lymyxin-hyd 6-15 Drops in ity of rocortisone 00:00: left ear 4 [place] otic 00 (four) Medical solution times Branch daily. TESTOSTERON 2019-0 Yes [id number] APPLY 2 Univers E 20.25 8-23 PUMPS ( TO ity of mg/1.25 00:00: THE [place] gram (1.62 00 SHOULDERS Medi mar[place] %) gel pump AND UPPER Bra nch ARMS) EVERY MORNING. TESTOSTERON 0 Yes [id number] APPLY 2 Univers E 20.25 8-23 PUMPS ( TO ity of mg/1.25 00:00: THE [place] gram (1.62 00 SHOULDERS Medi marimar %) gel pump AND UPPER Bra nch ARMS) EVERY MORNING. SERTraline 2019-0 Yes [id number] 100mg Take 1 Univers 100 mg 6-12 tablet by ity of tablet 00:00: mouth [place] 00 daily. Medical Branch SERTraline 2019-0 Yes [id number] 100mg Take 1 Univers 100 mg 6-12 tablet by ity of tablet 00:00: mouth [place] 00 daily. Medical Branch traMADol 2019-0 Yes [id number] 50mg Take 1 Univers (ULTRAM) 50 6-05 [id number] tablet by i ty of mg tablet 00:00: mouth [place] 00 every 6 Medical (six) Branch hours as needed for Pain (scale 7-10). traMADol 2020-0 Yes [id number] 50mg Take 1 Univers (ULTRAM) 50 6-05 [id number] tablet by i ty of mg tablet 00:00: mouth [place] 00 every 6 Medical (six) Branch hours as needed for Pain (scale 7-10). icosapent 2020-0 Yes [id number] 2g Take 2 U nivers ethyl 2-25 capsules ity of (VASCEPA) 1 00:00: by mouth 2 [place] gram 00 (two) Medical capsule times Branch daily with meals. icosapent 2020-0 Yes [id number] 2g Take 2 U nivers ethyl 2-25 capsules ity of (VASCEPA) 1 00:00: by mouth 2 [place] gram 00 (two) Medical capsule times Branch daily with meals. Immunizations Ordered Filled Immunization Date Status Comments [facility] Immunization Name Name Pfizer COVID-19 Pfizer COVID-19 2020-06-28 Completed Vaccine Vaccine 00:00:00 SARS-COV-2 COVID-19 2020-06-28 Completed Unive rsity of PFIZER VACCINE 00:00:00 [facility] SARS-COV-2 COVID-19 2020-06-28 Completed Unive rsity of PFIZER VACCINE 00:00:00 [facility] Pfizer COVID-19 Pfizer COVID-19 2020-06-07 Completed Vaccine Vaccine 00:00:00 SARS-COV-2 COVID-19 2020-06-07 Completed Unive rsity of PFIZER VACCINE 00:00:00 [facility] SARS-COV-2 COVID-19 2020-06-07 Completed Unive rsity of PFIZER VACCINE 00:00:00 [facility] Vital Signs Vital Name Observation Time Observation Value Comments Source Systolic blood 2020-11-24 01:58:00 136 mm[Hg] Univer sity of pressure [facility] Diastolic blood 2020-11-24 01:58:00 91 mm[Hg] Unive rsity of pressure [facility] Heart rate 2020-11-24 01:57:00 93 /min Universi ty of [facility] Body temperature 2020-11-24 01:57:00 36.83 Phyllis [facility] Respiratory rate 2020-11-24 01:57:00 20 /min [facility] Body height 2020-11-24 01:57:00 180.3 cm [facility] Body weight 2020-11-24 01:57:00 96.616 kg [facility] BMI 2020-11-24 01:57:00 29.71 kg/m2 [facility] Oxygen saturation in 2020-11-24 01:57:00 98 /min [facility] Arterial blood by [facility] Pulse oximetry [place] Procedures Procedure Date / Time Performed Performing Clinician Sour e ASSIGNMENT OF BENEFITS 2020-11-24 01:52:32 Doctor Unassigned, No [facility] Encounters Start End Encounter Admission Attending Care Care Encounter Source Date/Time Date/Time Type Type Clinicians Facility Department ID 2020-12-29 Emergency [facility] [id number] [facility]-10[facility]01 2021-10-01 [id number] - Devoted 00:00:00 00:00:00 [id number] Medica l Group 2021-09-11 2021-09-11 Outpatient [facility] [id number] [facility] 08:04:00 08:04:00 [id number] Medica l Group 2021-03-11 2021-03-11 Outpatient [facility] [id number] [facility] 12:01:00 12:01:00 Medica l Group 2020-11-23 2020-11-23 [facility] [id number] Univers 20:52:53 21:12:53 Care [facility] [id number] it y of [place] [id number] Doug as Javad?Blea [phone] [address] Medical Office Building 2020-11-23 2020-11-23 Outpatient R [facility] [id number] Univers 20:40:00 20:40:00 [id number] y [facility] 2020-11-23 2020-11-23 Outpatient R JOSE GUADALUPE [facility] [id number] Univers 20:40:00 20:40:00 CELSO ity [facility] 2020-11-23 2020-11-23 Orders Doctor KRISS [id number] Univers 00:00:00 00:00:00 Only Unassigned, ALY [id number] ity of [place] [facility] [id number] Doug as [id number] [address] 2020-06-28 2020-06-28 Outpatient [facility] [id number] Univers 09:55:00 09:55:00 ity [facility] 2020-06-28 2020-06-28 Outpatient [facility] [id number] [facility] 00:00:00 00:00:00 V 2020-06-07 2020-06-07 Outpatient [facility] [id number] Univers 09:40:00 [facility] 2020-06-07 2020-06-07 Outpatient GCCOVIDV GCCOVIDV [id number] [facility] 00:00:00 00:00:00 V 2019-09-12 2019-09-12 Outpatient Chaips DAY [facility] [id number] Univers 13:15:00 13:15:00 ALICE [id number] [facility] 2019-09-12 2019-09-12 Outpatient Chapsi DAY [facility] [id number] Univers 13:15:00 13:15:00 ALICE [facility] 2019-08-15 2019-08-15 Outpatient Chapis DAY [facility] [id number] Univers 15:52:59 23:59:00 ALICE [facility] 2019-08-15 2019-08-15 Outpatient Chapis DAY [facility] [id number] Univers 15:30:00 15:30:00 ALICE [id number] [facility] 2019-08-08 2019-08-08 Outpatient Chapis DAY [facility] [id number] Univers 15:42:16 15:43:00 ALICE [facility] 2019-08-08 2019-08-08 Outpatient Chapis DAY [facility] [id number] Univers 14:15:00 14:15:00 ALICE [id number] ity of [facility] 2019-08-02 2019-08-03 Emergency X WALESKA [facility] ERT [id number] Univers 22:10:13 01:57:00 AZAEL ity of [facility] 2019-06-29 2019-06-29 Outpatient R [facility] [id number] Univers 15:00:00 15:00:00 ity of [facility] 2019-06-29 2019-06-29 Outpatient R [facility] [id number] Univers 10:10:00 10:10:00 ity of [facility] 2019-06-29 2019-06-29 Outpatient R [facility] [id number] Univers 10:10:00 10:10:00 ity of [facility] 2019-06-28 2019-06-28 Outpatient R [facility] [id number] Univers 11:00:00 11:00:00 [id number] ity of [facility] 2019-06-28 2019-06-28 Outpatient R [facility] [id number] Univers 11:00:00 11:00:00 ity of [facility] 2019-06-27 2019-06-27 Outpatient R [facility] [id number] Univers 08:50:00 08:50:00 [id number] ity of [facility] 2019-06-27 2019-06-27 [facility] [id number] Univers 08:50:00 08:50:00 RU ity of [facility] 2019-06-26 2019-06-26 Outpatient R [facility] [id number] Univers 08:40:00 08:40:00 [id number] ity of [facility] 2019-06-26 2019-06-26 Outpatient R MANN, [facility] [id number] Univers 08:40:00 08:40:00 LUIS ALBERTO ity of [facility] 2019-06-22 2019-06-22 Outpatient R [facility] [id number] Univers 14:10:00 14:10:00 [id number] ity of [facility] 2019-06-22 2019-06-22 Outpatient R UNKNOWN, [facility] [id number] Univers 14:10:00 14:10:00 ATTENDING lorenzo [facility] 2019-05-11 2019-05-11 Outpatient Chapis NELSON [facility] [id number] Univers 13:40:00 13:40:00 AGUSTIN richelle [facility] 2019-03-05 2019-03-05 Outpatient Chapis NELSON [facility] [id number] Univers 11:15:00 11:58:15 AGUSTIN [facility] 2019-02-27 2019-02-27 Emergency X MAGDARICAL, [facility] ERT [id number] Univers 12:12:18 15:10:00 KESHA ventura [facility] Results This patient has no known results.
[2021-10-02 18:12] LABS: Urine Blood Negative (Negative); Urine Glucose Negative (Negative); Urine Specific Gravity <=1.005 (1.005-1.030)
[2021-10-02 18:13] LABS: Urine Protein Negative (Negative)
[2021-10-02 18:28] LABS: Absolute Lymphocytes (CBC) 1.6 K/uL (0.7-4.9); Hematocrit 40.9 % (39.6-49.0); Lymphocytes % 38.6 % (15.3-44.8); MCV 83.8 fL (80-100); MPV 7.6 fL (7.6-11.3); RBC Red Blood Cell Count 4.88 M/uL (4.33-5.43)
[2021-10-02 18:33] LABS: Barbiturates POSITIVE (NEGATIVE); Benzodiazepines NEGATIVE (NEGATIVE); Cocaine NEGATIVE (NEGATIVE); METHAMPHETAM NEGATIVE (NEGATIVE); Methadone NEGATIVE (NEGATIVE); Opiates NEGATIVE (NEGATIVE); Phencyclidine NEGATIVE (NEGATIVE); THC Cannibis NEGATIVE (NEGATIVE)
--- NOTE | 2021-10-02 18:58 | RAD REPORT ---
EXAM DESCRIPTION: CT - Head C Spine Mpr Wo Con - 10/02/2021 6:46 pm CLINICAL HISTORY: Head and neck injury status post fall. Head and neck pain COMPARISON: None. TECHNIQUE: Computed axial tomography of the head and cervical spine was obtained. Sagittal and coronal reconstruction was performed. All CT scans are performed using dose optimization technique as appropriate and may include automated exposure control or mA/KV adjustment according to patient size. FINDINGS: An intracranial bleed is not seen. The ventricles are normal in caliber. An extra-axial fl uid collection is not noted.Fluid within the visualized sinuses and mastoids is not seen Several scalp lesions measuring up to 9 millimeters. These are nonspecific A cervical fracture is not visualized. No dislocation is noted. 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 Spondylosis C5-6 resulting in moderate to marked left and moderate rig ht foraminal stenosis IMPRESSION: No acute intracranial abnormality is seen. A cervical fracture is not visualized. If the patient continues to have symptoms to suggest intracra nial /spinal cord pathology then MRI would be recommended
--- NOTE | 2021-10-02 19:03 | RAD REPORT ---
EXAM DESCRIPTION: Alison Single View10/02/2021 6:58 pm CLINICAL HISTORY: Chest pain COMPARISON: none FINDINGS: The lungs appear clear of acute infiltrate. The heart is normal size IMPRESSION: No acute abnormalities displayed
[2021-10-02 19:20] LABS: BUN Blood Urea Nitrogen 13 mg/dL (7-18); Bicarbonate 26 mmol/L (21-32); Glomerular Filtration Rate 110 ml/min (=/>90); Glucose Level 109 mg/dL (74-106); Potassium 3.8 mmol/L (3.5-5.1); Sodium Level 138 mmol/L (136-145)
[2021-10-02 19:46] LABS: SARS-CoV-2 Antigen Rapid Res Negative (Negative)
[2021-10-02] MEDS ORDERED: DIPHENHYDRAMINE 50 MG/ML VIAL ONE (20:16)
[2021-10-02] MEDS ORDERED: LORazepam 2 MG/ML VIAL ONE (20:17)
[2021-10-02] MEDS ORDERED: HALOPERIDOL LACT 5 MG/ML INJ ONE (20:18)
[2021-10-02] MEDS ORDERED: ZIPRASIDONE MESYLA 20 MG/VIAL IM ONE (21:05)
[2021-10-02] MEDS ORDERED: WATER FOR INJ,STERILE 10 ML ONE (21:06)
--- NOTE | 2021-10-03 06:16 | ER ---
Nurse's Notes [facility] Name: Bharathi Devine Age: 46 yrs Sex: Male : 1975 Arrival Date: 10/02/2021 Time: 17:36 Bed 17 Private MD: Diagnosis: Major depressive disorder, recurrent, mild;Suicidal ideations-NO PLAN;Alcohol abuse with intoxication Presentation: 10/02 17:38 Chief complaint: pt arrives to ER with [facility], pt told his and iw psychiatrist that he wanted to kill himself, pt was slamming his head against the vehicle en route to ER, pt had near syncopal episode and was moved to ER bed 4. Coronavirus screen: At this time, the client does not indicate any symptoms associated with coronavirus-19. 17:38 Method Of Arrival: Law Enforcement: Indira HOLLIS iw 17:38 Acuity: GIRISH 2 iw 18:20 Ebola Screen: No symptoms or risks identified at this time. Initial Sepsis Screen: Does aa5 the patient meet any 2 criteria? HR > 90 bpm. Does the patient have a suspected source of infection? No. Patient's initial sepsis screen is negative. Risk Assessment: Do you want to hurt yourself or someone else? Patient reports desire/thoughts of hurting themselves or someone else. Provider notified. Onset of symptoms was October 02, 2021. Historical: - Allergies: 18:20 No Known Allergies; ha1 - Home Meds: 18:20 Zoloft Oral [Active]; Clonazepam Oral [Active]; Suboxone sublingual [Active]; Lunesta ha1 oral [Active]; Lisinopril Oral [Active]; Topamax Oral [Active]; abilify (prescribed 10/02/21 pt has not started taking meds) [Active]; 10/03 09:43 Vascepa oral [Active]; Lipitor Oral [Active]; John Gel [Active]; vg1 - PMHx: 10/02 18:20 Seizures; traumatic brain injury; Neuropathy; Pituitary Tumor; Depressive disorder; ha1 Anxiety; Hypertensive disorder; 10/03 12:18 Rectal prolapse; vg1 - PSHx: 10/02 18:20 Brain Sx for TBI; Left foot for neuropathy; ha1 - Immunization history:: Adult Immunizations unknown. - Social history:: Smoking status: Patient/guardian denies using tobacco. Screenin:30 Abuse screen: Denies threats or abuse. Nutritional screening: No deficits noted. aa5 Tuberculosis screening: No symptoms or risk factors identified. Fall Risk Secondary diagnosis (15 points) seizures, Mental Status- Overestimates/Forgets Limitations (15 pts.). Total Aleman Fall Scale indicates Low Risk Score (25-44 pts). Fall prevention measures have been instituted. Side Rails Up X 2 Placed close to Nursing Station. Assessment: 17:35 Reassessment: pt appeared to be having a seizure in waiting chairs of ED and was vg1 transported to room 4 via stretcher. 17:45 Reassessment: pt began to cry and stated "I dont have to stay here Im not going to put vg1 up with this shit" jumped up out of bed and ran out of room and ran out of ED to bay area. 17:46 Reassessment: pt ran out back ambulance bay door, proceeded to run to out towards lab iw area. 18:13 Reassessment: pt was escorted back to ER to room 17. iw 18:20 General: Appears uncomfortable, Behavior is restless, pacing in room . Smells of aa5 alcohol, Pt states "I drank 2 24 oz cans of 4.7% alcohol seltzer drinks" . Reports "I saw the psychiatrist today and he prescribed Ability today for me but I haven't taken it yet, I told him I was getting suicidal and I am just having a hard time with my ". Pt agrees to be transferred to psychiatric hospital as needed. Pain: Denies pain. Pain currently is 0 out of 10 on a pain scale. Neuro: Level of Consciousness is awake, alert, obeys commands, Oriented to person, place, time, situation. Cardiovascular: Heart tones S1 S2 present Rhythm is regular. Respiratory: Airway is patent Respiratory effort is even, unlabored, Respiratory pattern is regular, symmetrical. GI: Abdomen is round non-distended, Bowel sounds present X 4 quads. Abd is soft and non tender X 4 quads. : No signs and/or symptoms were reported regarding the genitourinary system. EENT: No signs and/or symptoms were reported regarding the EENT system. Derm: Skin is moist, Skin is flushed, Skin temperature is warm. Musculoskeletal: Range of motion: intact in all extremities. 18:20 Reassessment: No IV noted, generation technician reports pt pulled out IV prior to being placed in aa5 Room 17. . 18:30 Reassessment: Pt now calm, cooperative and sitting up in bed. . Neuro: Level of aa5 Consciousness is awake, alert, obeys commands, Oriented to person, place, time, situation. Respiratory: Airway is patent Respiratory effort is even, unlabored, Respiratory pattern is regular, symmetrical. Derm: Skin is dry, Skin is flushed, Skin temperature is warm. 18:30 Reassessment: Pt's belongings list completed and witnessed by Nemo Carroll RN (wedding aa band, pants, shirt, shoes, belt, 6 credit cards, parts driver's license, Abilify 5 mg 15 pills placed in security envelope (#[id number]). See pt's paper chart for this documentation. . 18:30 Reassessment: See paper chart for further documentation. . aa5 19:00 Reassessment: Pt sitting up in bed, calm. . aa5 19:00 Reassessment: Report given to CHRIS Whelan. aa5 20:05 General: Behavior is combative, uncooperative, patient is refusing to follow ke1 instructions and want to leave his room. Patient pulled out his iV. Brian amin calledMd notified. Charge nurse and house calls nurse practitioner on site to calm him down. . 20:15 Reassessment: patient received ativan per md order. General: Behavior is uncooperative. ke1 20:43 General: Behavior is calm, crying. ke1 20:55 General: Patient pacing and crying. Cooperative. " I just want to know why I am here, tw5 and I just feel bad about what happened earlier.". 21:27 General: Patient escorted to bed. Agreed to stay in the bed. . tw5 10/03 05:41 Reassessment: Penny spear called and they will send someone to assess patient. ke1 07:33 Reassessment: received VO from Dr More to administer Toradol 30 mg IVP x1. vg1 07:51 Reassessment: pt on the phone with Penny Spear. vg1 07:58 Reassessment: pt c/o nausea; provider notified. Received VO from Dr More to vg1 administer Zofran 4 mg IVP x1. 10:06 Reassessment: pt medication list updated in charting; pt requesting daily medication, 1 charge nurse and provider notified. Called pharmacy for verification of pt medications. 10:39 Reassessment: pt BOZENA DEVINE, . vg1 10:40 Reassessment: Patient appears in no apparent distress at this time. Patient is alert, vg1 oriented x 3, equal unlabored respirations, skin warm/dry/pink. brushing teeth in room, sitter standing in doorway. 12:30 Reassessment: Pt requesting home medications that administers on a daily basis, [facility] received VO from Dr more to place order for pt. 21:54 Reassessment: Patient appears in no apparent distress at this time. Patient and/or lg3 family updated on plan of care and expected duration. Pain level reassessed. Patient is alert, oriented x 3, equal unlabored respirations, skin warm/dry/pink. 10/04 06:24 Reassessment: Patient appears in no apparent distress at this time. No changes from tw5 previously documented assessment. pt quietly resting with at bedside. 07:05 Reassessment: No changes from previously documented assessment. Report received from ll1 restaurant shift leader RN. No sitter available at this time. at bedside with patient. 09:56 Reassessment: offered pt oral care and body wipes. vg1 12:00 Reassessment: Dr More at the bedside. vg1 12:26 Reassessment: No changes from previously documented assessment. Patient and/or family 1 updated on plan of care and expected duration. Pain level reassessed. Patient is alert, oriented x 3, equal unlabored respirations, skin warm/dry/pink. Psych: 10/02 18:30 [place] Suicide Severity Screening: In the past month, have you wished you were aa5 or wished you could go to sleep and not wake up? Patient responds "yes." "In the past month, have you actually had any thoughts of killing yourself?" Patient responds "yes." "In your lifetime, have you ever done anything, started to do anything, or prepared to do anything to end your life?" Patient responds "no.". Subjective: Having thoughts of suicide. Objective: Patient is defensive, restless, Speech is rambling, Patient has mutilated themselves by old self mutilation scars noted to left forearm. Interventions: Removed personal items and placed in bag. Patient placed in hospital gown. Searched person for dangerous items. Urine collected and sent for urine drug test. Belonging list filled out. Safety Checks: Personal items have been removed. Door is open. No visitors are present at this time. 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 Commitment: Patient will be a voluntary commitment. Vital Signs: 18:20 BP 124 / 82; Pulse 110; Resp 20 S; Temp 99.3(O); Pulse Ox 94% on R/A; Weight 100.7 kg aa5 (R); Height 5 ft. 11 in. (180.34 cm) (R); Pain 0/10; 08 08:32 BP 125 / 78; Pulse 84; Resp 18; Temp 97.9; Pulse Ox 96% ; mb7 19:50 BP 130 / 88; Pulse 88; Resp 17; Temp 98.1(O); Pulse Ox 95% on R/A; mh5 10/04 12:26 BP 133 / 91; Pulse 63; Resp 16; Pulse Ox 96% on R/A; ll1 10/02 18:20 Body Mass Index 30.96 (100.70 kg, 180.34 cm) aa5 ED Course: 10/02 17:36 Patient arrived in ED. iw 17:36 Dave Gomes is PHCP. jl9 17:36 Marshall Petersen MD is Attending Physician. jl9 17:40 Triage completed. iw 17:40 Arm band placed on. iw 17:45 Nica Beltran, RN is Primary Nurse. vg1 17:46 Initial lab(s) drawn, by me. Inserted saline lock: 20 gauge in left antecubital area, tp1 using aseptic technique. Blood collected. 18:48 Head C Spine Mpr Wo Con In Process Unspecified. EDMS 19:00 XRAY Chest (1 view) In Process Unspecified. EDMS 19:27 SARS RAPID Sent. 5 19:27 RAPID COVID. mh5 19:28 Patient has correct armband on for positive identification. Placed in gown. Bed in low mh5 position. Side rails up X 1. Warm blanket given. 19:41 Inserted saline lock: 20 gauge in right antecubital area, using aseptic technique. 5 20:06 Attending Physician role handed off by Marshall Petersen MD [facility] 20:06 Brett Oliver MD is Attending Physician. 7 20:45 Patient removed IV. tw5 20:45 bleeding controlled, Pressure dressing applied. tw5 23:16 Safety checks: Family/friend present:. 5 10/03 04:07 ETOH Level Sent. ke1 04:07 Inserted saline lock: 20 gauge in right antecubital area, using aseptic technique. ke1 07:08 Safety Checks: Personal items have been removed. The door is open or patient has been vg1 placed in a hallway bed/chair. There are no family/friend visitors at this time Sitter present at this time. Other: Pt appears in NAD, AOx3; pt stated h/a of 10/07; provider notified. 08:13 Attending Physician role handed off by Brett Oliver MD [facility] 08:13 Daniel More MD is Attending Physician. [facility] 08:33 at bedside. . Diet: Finger food tray given to pt. . 7 09:05 Safety Checks: Personal items have been removed. The door is open or patient has been vg1 placed in a hallway bed/chair. A family member and/or friend is present and encouraged to stay. pt Sitter present at this time. Other: NAD, AOx 3, rates h/a 08/07; pt concerned about home meds; provider notified. 10:48 Assisted with urinal. Oral care given. Gown and socks changed. mb7 11:01 Safety Checks: Personal items have been removed. The door is open or patient has been vg1 placed in a hallway bed/chair. There are no family/friend visitors at this time went home, "will be back later" Sitter present at this time. Other: AOx3, appears in NAD, sitting quietly reading news paper. 12:27 Safety Checks: Personal items have been removed. The door is open or patient has been vg1 placed in a hallway bed/chair. A family member and/or friend is present and encouraged to stay. at bedside Other: talking with , eating lunch, appears in NAD. 14:30 Safety Checks: Personal items have been removed. The door is open or patient has been vg1 placed in a hallway bed/chair. A family member and/or friend is present and encouraged to stay. Sitter present at this time. Other: Pt appears in NAD, AOx3, sitting quietly watching tv with at bedside. 16:18 Safety Checks: Personal items have been removed. The door is open or patient has been vg1 placed in a hallway bed/chair. A family member and/or friend is present and encouraged to stay. Sitter present at this time. Other: Pt appears in NAD, watching tv with at the bedside. 18:11 Safety Checks: Personal items have been removed. The door is open or patient has been vg1 placed in a hallway bed/chair. A family member and/or friend is present and encouraged to stay. at bedside Sitter present at this time. Other: Pt resting quietly watching tv. 21:06 Lights dimmed. CHANGED BEDDING Pillow given. Diet: Patient given snack. 5 10/04 08:46 IV discontinued, intact, bleeding controlled, No redness/swelling at site. Pressure mb7 dressing applied. 12:12 Bj Hopkins MD is Referral Physician. [facility] 12:26 No provider procedures requiring assistance completed. ll1 Administered Medications: 10/02 20:45 Not Given (Patient Refused): NS 0.9% 1000 ml IV at 1000 ml once tw5 20:45 Not Given (Patient Refused): HALdol (as decanoate) 5 mg IM once tw5 20:45 Drug: Ativan (LORazepam) 2 mg Route: IM; Site: left deltoid; tw5 21:08 Follow up: Response: No adverse reaction; Anxiety unchanged tw5 20:45 Not Given (Patient Refused): Benadryl (diphenhydrAMINE) 50 mg IM once tw5 21:08 Drug: Geodon (ziprasidone) 10 mg Route: IM; Site: left deltoid; tw5 10/04 12:28 Follow up: Response: No adverse reaction 1 10/03 08:00 Drug: Zofran (Ondansetron) 4 mg Route: IVP; Site: right antecubital; vg1 08:56 Follow up: Response: No adverse reaction; Marked relief of symptoms vg1 08:02 Drug: Ketorolac 30 mg Route: IVP; Site: right antecubital; vg1 08:56 Follow up: Response: No adverse reaction; Marked relief of symptoms vg1 14:51 Drug: clonazePAM 0.5 mg Route: PO; vg1 21:54 Follow up: Response: No adverse reaction lg3 14:53 Drug: Zoloft 150 mg Route: PO; vg1 21:53 Follow up: Response: No adverse reaction lg3 21:05 Drug: Lunesta 3 mg Route: PO; lg3 21:54 Follow up: Response: No adverse reaction lg3 21:05 Drug: Abilify 2.5 mg Route: PO; lg3 21:54 Follow up: Response: No adverse reaction lg3 21:10 Drug: Fioricet - Esgic 325 mg-40 mg-50 mg 1 tab-caps Route: PO; lg3 21:54 Follow up: Response: No adverse reaction lg3 21:53 Drug: Colace (docusate) 200 mg Route: PO; lg3 21:54 Follow up: Response: No adverse reaction 3 08 09:15 Drug: Fioricet - Esgic 325 mg-40 mg-50 mg 1 tab-caps {Note: pain 7/10, RASS 0.} Route: ll1 PO; 10:02 Follow up: Response: No adverse reaction; Pain is decreased; RASS: Alert and Calm (0) 1 Medication: 12:27 VIS not applicable for this client. ll1 Outcome: 10/03 06:15 ER care complete, transfer ordered by MD. pizano 10/04 12:13 Discharge ordered by MD. willoughby 12:26 Discharged to home ambulatory. ll1 12:26 Condition: stable 12:26 Discharge instructions given to patient, Instructed on discharge instructions, follow up and referral plans. no drinking with medication, no driving heavy equipment, medication usage, Demonstrated understanding of instructions, follow-up care, medications, Prescriptions given X 1. 12:27 Patient left the ED. 1 Signatures: Dispatcher [employer] EDGA Daniel More MD MD cha Williams, Irene, RN RN Leida Isaac, RN RN aa5 Katie Scott 5 Mercedez Lagos, RN RN lg3 Nica Beltran RN RN reema1 Tod Bermeo, CHRIS RN ll1 Brett Oliver MD MD 7 Marleny Rosen 5 Marleny Baeza RN RN tp1 Ranjan, Amy 7 Tip Benitez RN RN 1 Dave Gomes 9 Nemo Carroll RN RN 1 Corrections: (The following items were deleted from the chart) 10/02 19:09 18:20 Home Meds: Neurontin Oral; ha1 ha1 19:42 18:20 General: Appears uncomfortable, Behavior is restless, pacing in room . Smells of aa5 alcohol, Pt states "I drank 2 24 oz cans of 4.7% alcohol seltzer drinks" . aa5
--- NOTE | 2021-10-03 06:16 | EDPHYS ---
Physician Documentation [facility] Name: Bharathi Naik Age: 46 yrs Sex: Male : 1975 Arrival Date: 10/02/2021 Time: 17:36 Bed 17 Private MD: ED Physician Daniel More HPI: 10/02 18:31 This 46 yrs old Male presents to ER via [employer] with complaints of jl9 Psych Problem. Patient brought in by PD on a LEE after telling his and his psychiatrist that he is thinking of suicide. . 18:31 The patient presents to the emergency department with depression, suicide ideation, but jl9 the patient has no formulated plan. Onset: The symptoms/episode began/occurred at an unknown time. Past psychiatric history: Prior diagnosis: , Psychiatric medications include: Primary psychiatric physician: the patient has a previous inpatient psychiatric history. Associated signs and symptoms: Pertinent positives; suicide ideation. Historical: - Allergies: 18:20 No Known Allergies; ha1 - Home Meds: 18:20 Zoloft Oral [Active]; Clonazepam Oral [Active]; Suboxone sublingual [Active]; Lunesta ha1 oral [Active]; Lisinopril Oral [Active]; Topamax Oral [Active]; abilify (prescribed 10/02/21 pt has not started taking meds) [Active]; 10/03 09:43 Vascepa oral [Active]; Lipitor Oral [Active]; John Gel [Active]; vg1 - PMHx: 10/02 18:20 Seizures; traumatic brain injury; Neuropathy; Pituitary Tumor; Depressive disorder; ha1 Anxiety; Hypertensive disorder; 10/03 12:18 Rectal prolapse; vg1 - PSHx: 10/02 18:20 Brain Sx for TBI; Left foot for neuropathy; ha1 - Immunization history:: Adult Immunizations unknown. - Social history:: Smoking status: Patient/guardian denies using tobacco. ROS: 18:32 Constitutional: Negative for fever, chills, and weight loss, Eyes: Negative for injury, jl9 pain, redness, and discharge, ENT: Negative for injury, pain, and discharge, Neck: Negative for injury, pain, and swelling, Cardiovascular: Negative for chest pain, palpitations, and edema, Respiratory: Negative for shortness of breath, cough, wheezing, and pleuritic chest pain, Abdomen/GI: Negative for abdominal pain, nausea, vomiting, diarrhea, and constipation, Back: Negative for injury and pain, : Negative for injury, bleeding, discharge, and swelling, MS/Extremity: Negative for injury and deformity, Skin: Negative for injury, rash, and discoloration, Neuro: Negative for headache, weakness, numbness, tingling, and seizure. 18:32 Allergy/Immunology: Negative for hives, rash, and allergies, Endocrine: Negative for neck swelling, polydipsia, polyuria, polyphagia, and marked weight changes, Hematologic/Lymphatic: Negative for swollen nodes, abnormal bleeding, and unusual bruising. 18:32 Psych: Positive for depression, suicidal ideation. Exam: 18:33 Constitutional: This is a well developed, well nourished patient who is awake, alert, jl9 and in no acute distress. 18:33 Eyes: Pupils equal round and reactive to light, extra-ocular motions intact. Lids and lashes normal. Conjunctiva and sclera are non-icteric and not injected. Cornea within normal limits. Periorbital areas with no swelling, redness, or edema. ENT: Mucous membranes moist. Neck: Trachea midline, no thyromegaly or masses palpated, and no cervical lymphadenopathy. Supple, full range of motion without nuchal rigidity, or vertebral point tenderness. No Meningismus. Chest/axilla: Normal chest wall appearance and motion. Nontender with no deformity. No lesions are appreciated. Cardiovascular: Regular rate and rhythm with a normal S1 and S2. No gallops, murmurs, or rubs. Normal PMI, no JVD. No pulse deficits. Respiratory: Lungs have equal breath sounds bilaterally, clear to auscultation and percussion. No rales, rhonchi or wheezes noted. No increased work of breathing, no retractions or nasal flaring. Abdomen/GI: Soft, non-tender, with normal bowel sounds. No distension or tympany. No guarding or rebound. No evidence of tenderness throughout. Back: No spinal tenderness. No costovertebral tenderness. Full range of motion. Skin: Warm, dry with normal turgor. Normal color with no rashes, no lesions, and no evidence of cellulitis. MS/ Extremity: Pulses equal, no cyanosis. Neurovascular intact. Full, normal range of motion. Neuro: Awake and alert, GCS 15, oriented to person, place, time, and situation. Cranial nerves II-XII grossly intact. Motor strength 5/5 in all extremities. Sensory grossly intact. Cerebellar exam normal. Normal gait. 18:33 Head/face: Noted is abrasion(s), of the left occipital area and right occipital area, hematoma. 18:33 Psych: Behavior/mood is cooperative, Affect is flat, Oriented to person, place, time, only. Patient having thoughts of suicide. Patient reports that he has no plan but suicide has been on his radar. Judgement / Insight is Delusions/hallucinations are not present. . Vital Signs: 18:20 BP 124 / 82; Pulse 110; Resp 20 S; Temp 99.3(O); Pulse Ox 94% on R/A; Weight 100.7 kg aa5 (R); Height 5 ft. 11 in. (180.34 cm) (R); Pain 0/10; 10/03 08:32 BP 125 / 78; Pulse 84; Resp 18; Temp 97.9; Pulse Ox 96% ; mb7 19:50 BP 130 / 88; Pulse 88; Resp 17; Temp 98.1(O); Pulse Ox 95% on R/A; mh5 10/04 12:26 BP 133 / 91; Pulse 63; Resp 16; Pulse Ox 96% on R/A; ll1 10/02 18:20 Body Mass Index 30.96 (100.70 kg, 180.34 cm) aa5 MDM: 10/02 17:39 Patient medically screened. [facility] 18:35 Data reviewed: vital signs, nurses notes. [facility] 10/03 06:13 Differential diagnosis: drug withdrawal. depression, suicidal ideation. Data 7 interpreted: Pulse oximetry: on room air is 96 %. Interpretation: normal. Counseling: I had a detailed discussion with the patient and/or guardian regarding: the historical points, exam findings, and any diagnostic results supporting the discharge/admit diagnosis, lab results, the need to transfer to another facility, [facility] does not immediately have the required specialist. Response to treatment: the patient's symptoms have mildly improved after treatment. 10/04 12:11 ED course: PT NOT SUICIDAL, NO HOMICIDAL , NEVER HAD A PLAN, WANT OUTPATIENT FOLLOW UP, case WITH PRESENT AND AGREES 100 % WITH OUTPAT FOLLOW UP. 10/02 17:38 Order name: BMP; Complete Time: 19:26 jl9 10/02 17:38 Order name: CBC with Diff; Complete Time: 19:07 jl9 10/02 17:38 Order name: UDS; Complete Time: 19:07 jl9 10/02 17:38 Order name: ETOH Level; Complete Time: 19:26 jl9 10/02 17:38 Order name: Acetaminophen; Complete Time: 19:26 jl9 10/02 17:52 Order name: Glucose, Ancillary Testing; Complete Time: 18:19 EDMS 10/02 17:38 Order name: XRAY Chest (1 view); Complete Time: 19:07 jl9 10/02 18:13 Order name: Urine Dipstick-Ancillary; Complete Time: 18:19 EDMS 10/02 18:42 Order name: Head C Spine Mpr Wo Con; Complete Time: 19:07 EDMS 10/02 19:09 Order name: SARS RAPID; Complete Time: 20:05 jl9 10/03 00:57 Order name: ETOH Level; Complete Time: 04:55 ds4 10/03 02:28 Order name: Diet Finger Food; Complete Time: 02:29 mh5 10/03 07:22 Order name: Diet Finger Food; Complete Time: 07:22 mb7 10/03 11:03 Order name: Diet Finger Food; Complete Time: 11:04 mb7 10/02 17:38 Order name: Urine Dipstick-Ancillary (obtain specimen); Complete Time: 19:11 jl9 10/04 05:22 Order name: Diet Finger Food; Complete Time: 05:23 mh5 Administered Medications: 10/02 20:45 Not Given (Patient Refused): NS 0.9% 1000 ml IV at 1000 ml once tw5 20:45 Not Given (Patient Refused): HALdol (as decanoate) 5 mg IM once tw5 20:45 Drug: Ativan (LORazepam) 2 mg Route: IM; Site: left deltoid; tw5 21:08 Follow up: Response: No adverse reaction; Anxiety unchanged tw5 20:45 Not Given (Patient Refused): Benadryl (diphenhydrAMINE) 50 mg IM once tw5 21:08 Drug: Geodon (ziprasidone) 10 mg Route: IM; Site: left deltoid; tw5 10/04 12:28 Follow up: Response: No adverse reaction ll1 10/03 08:00 Drug: Zofran (Ondansetron) 4 mg Route: IVP; Site: right antecubital; vg1 08:56 Follow up: Response: No adverse reaction; Marked relief of symptoms vg1 08:02 Drug: Ketorolac 30 mg Route: IVP; Site: right antecubital; vg1 08:56 Follow up: Response: No adverse reaction; Marked relief of symptoms vg1 14:51 Drug: clonazePAM 0.5 mg Route: PO; vg1 21:54 Follow up: Response: No adverse reaction lg3 14:53 Drug: Zoloft 150 mg Route: PO; vg1 21:53 Follow up: Response: No adverse reaction lg3 21:05 Drug: Lunesta 3 mg Route: PO; lg3 21:54 Follow up: Response: No adverse reaction lg3 21:05 Drug: Abilify 2.5 mg Route: PO; lg3 21:54 Follow up: Response: No adverse reaction lg3 21:10 Drug: Fioricet - Esgic 325 mg-40 mg-50 mg 1 tab-caps Route: PO; lg3 21:54 Follow up: Response: No adverse reaction lg3 21:53 Drug: Colace (docusate) 200 mg Route: PO; lg3 21:54 Follow up: Response: No adverse reaction lg3 0807 09:15 Drug: Fioricet - Esgic 325 mg-40 mg-50 mg 1 tab-caps {Note: pain 7/10, RASS 0.} Route: ll1 PO; 10:02 Follow up: Response: No adverse reaction; Pain is decreased; RASS: Alert and Calm (0) ll1 Disposition: 12:10 Co-signature as Attending Physician, Daniel More MD I agree with the assessment and case plan of care. Disposition Summary: 10/04/21 12:13 Discharge Ordered Location: Home case Problem: new(10/04/21 12:13) case Symptoms: have improved(10/04/21 12:13) case Condition: Stable(10/04/21 12:13) case Diagnosis - Major depressive disorder, recurrent, mild case - Suicidal ideations - NO PLAN(10/04/21 12:13) case - Alcohol abuse with intoxication case Followup: case - With: Bj Hopkins MD - When: 1 - 2 days - Reason: Recheck today's complaints, Continuance of care, Re-evaluation by your physician Followup: [facility] - With: Private Physician - When: 1 - 2 days - Reason: Recheck today's complaints, Re-evaluation by your physician Discharge Instructions: - Discharge Summary Sheet [facility] - Alcohol Intoxication [facility] - Suicidal Feelings: How to Help Yourself [facility] - Helping Someone Who is Suicidal [facility] - Major Depressive Disorder, Adult, [id number] [facility] - Alcohol Intoxication, [id number] case - Persistent Depressive Disorder, Adult, [id number] [facility] - Supporting Someone With Depression [facility] - Managing Depression, Adult [facility] Forms: - Medication Reconciliation Form [facility] - Thank You Letter [facility] - Antibiotic Education [facility] - Prescription Opioid Use [facility] Prescriptions: - Klonopin 0.5 mg Oral Tablet - take 1 tablet by ORAL route every 12 hours As needed; 20 tablet; Refills: 0, case Product Selection Permitted Signatures: Dispatcher [employer] EDMS Daniel More MD MD cha Calderon, Audri, RN RN aa5 Mercedez Lagos, RN RN lg3 Nica Beltran, RN RN vg1 Tod Bermeo RN RN ll1 Brett Oliver MD MD 7 Marleny Rosen tw5 Dave Gomes9 Nemo Carroll, RN RN ha1 Corrections: (The following items were deleted from the chart) 10/02 18:41 17:39 C Spine Wo Con+CT.RAD.BRZ ordered. EDMS EDMS 18:42 17:39 Head Brain Wo Cont+CT.RAD.BRZ ordered. EDMS EDMS 19:09 18:20 Home Meds: Neurontin Oral; ha1 ha1 10/04 12:12 08/06 06:[address] 10/04 12:12 08/06 06:15 Psych Facility [address] 10/04 12:12 08/06 06:15 Higher level of care [address] 10/04 12:12 08/06 06:[address] 10/04 12:12 08/06 06:15 an acute exacerbation [address] 10/04 12:12 0806 06:15 have improved [address] 10/04 12:12 08/06 06:15 Other depressive episodes [address] 10/04 12:12 10/03 06:15 Suicidal ideations [address]
[2021-10-03] MEDS ORDERED: KETOROLAC 30 MG/ML INJ ONE (07:56)
[2021-10-03] MEDS ORDERED: ONDANSETRON 4 MG/2 ML VIAL ONE (08:08)
[2021-10-03] MEDS ORDERED: clonazePAM 0.5 MG TAB PO SCH (14:00)
[2021-10-03] MEDS ORDERED: SERTRALINE HCL 50 MG TAB PO ONE (14:00)
[2021-10-03] MEDS ORDERED: clonazePAM 0.5 MG TAB ONE (14:52)
[2021-10-03] MEDS ORDERED: ARIPiprazole 5 MG TAB ONE (20:23)
[2021-10-03] MEDS ORDERED: ESZOPICLONE 1 MG TAB ONE (20:28)
[2021-10-03] MEDS ORDERED: ARIPiprazole 5 MG TAB PO SCH (21:00)
[2021-10-03] MEDS ORDERED: HOME MED 1 EA UNK PO ONE (21:00)
[2021-10-03] MEDS ORDERED: ACETAMIN/CAFFEINE/BUTALB TAB PO ONE (21:15)
[2021-10-03] MEDS ORDERED: DOCUSATE NA 100 MG CAP PO ONE (21:53)
[2021-10-04] MEDS ORDERED: ACETAMIN/CAFFEINE/BUTALB TAB PO ONE (09:21)
[2021-10-04 13:21] VITALS: TEMP 98.1
[2021-10-04 13:23] VITALS: BP 133/91; O2SAT 96
== END 2021-10-04 12:27 | disposition home or self-care (01) ==
LOC: ER 17:35
DX: R45.851 Suicidal ideations (principal); F33.0 Major depressive disorder, recurrent, mild; F10.129 Alcohol abuse with intoxication, unspecified; I10 Essential (primary) hypertension; Z87.820 Personal history of traumatic brain injury; Z20.822 Contact with and (suspected) exposure to COVID-19
CPT/HCPCS: 85025; 80048; 36415; 80320; 80329; 82947; 81003; 80307; 70450; 72125; 71045; 96375; 96372; 96374; 99285; 87811; J1630; J1200; J3486